=== PATIENT | male | born 1945 | race Two or more races ===

== ENCOUNTER 2022-07-02 08:30 | Inpatient (IN) | payer OTHER ==
[~2022-07-02] VITALS: Ht 167.6 cm; Wt 70.8 kg
[~2022-07-02 08:30] MED LIST: ATORVASTATIN CA40 MG PO; DILTIAZEM 24HR120 MG PO; FENOFIBRATE54 MG PO; IRBESARTAN-HCT1 EAC1; LANTUS100 U/ML; TENORMIN100 M1 PO
[2022-07-02] MEDS ORDERED: AMLODIPINE BESY10 MG PO (08:40)
[2022-07-09] MEDS ORDERED: OXYBUTYNIN CHLO10 MG (15:38)
[2022-07-09] MEDS ORDERED: TOLTERODINE TART2 M1 (15:38)
[2022-07-09] MEDS ORDERED: ALPRAZOLAM1 MG (15:38)
[2022-07-09] MEDS ORDERED: PHOSLO667 M1 (15:38)
[2022-07-09] MEDS ORDERED: TADALAFIL20 MG (15:38)
[2022-07-09] MEDS ORDERED: TRADJENTA5 MG (15:38)
[2022-07-09] MEDS ORDERED: VASOTEC20 MG (15:39)
[2022-07-13] MEDS ORDERED: NORFLEX100MG PO (12:16)
[2022-07-13] MEDS ORDERED: AMLODIPINE BESY10 MG PO (12:17)
[2022-07-13] MEDS ORDERED: LIPITOR40 MG PO (12:17)
[2022-07-13] MEDS ORDERED: HYDRALAZINE HCL25 MG PO (12:18)
[2022-07-13] MEDS ORDERED: LOPRESSOR25 MG PO (12:18)
[2022-07-13] MEDS ORDERED: ALPRAZOLAM1 MG PO (12:19)
== END 2022-07-13 12:29 | disposition home or self-care (01) | DRG 292 ==
LOC: ER 08:30 → ICU 18:59 → ICU-2 18:59 → ICU 20:42 → MEDI 07-07 17:46 → MEDJ 07-07 18:55
PROVIDERS: ADMIT Internal Medicine; ATTEND Internal Medicine
PROC: BG44ZZZ Ultrasonography of Thyroid Gland (ICD-10-PCS; principal; 2022-07-02)
PROC: BB24ZZZ Computerized Tomography (CT Scan) of Bilateral Lungs (ICD-10-PCS; 2022-07-02)
PROC: B246ZZZ Ultrasonography of Right and Left Heart (ICD-10-PCS; 2022-07-02)
PROC: 3E0F7GC Introduction of Other Therapeutic Substance into Respiratory Tract, Via Natural or Artificial Opening (ICD-10-PCS; 2022-07-02)
PROC: 5A0935A Assistance with Respiratory Ventilation, Less than 24 Consecutive Hours, High Flow/Velocity Cannula (ICD-10-PCS; 2022-07-02)
PROC: 05HM33Z Insertion of Infusion Device into Right Internal Jugular Vein, Percutaneous Approach (ICD-10-PCS; 2022-07-06)
PROC: 4A12X4Z Monitoring of Cardiac Electrical Activity, External Approach (ICD-10-PCS; 2022-07-07)
PROC: 5A1D70Z Performance of Urinary Filtration, Intermittent, Less than 6 Hours Per Day (ICD-10-PCS; 2022-07-07)
PROC: B54PZZZ Ultrasonography of Bilateral Upper Extremity Veins (ICD-10-PCS; 2022-07-10)
PROC: 5A1D70Z Performance of Urinary Filtration, Intermittent, Less than 6 Hours Per Day (ICD-10-PCS; 2022-07-10)
PROC: 5A1D70Z Performance of Urinary Filtration, Intermittent, Less than 6 Hours Per Day (ICD-10-PCS; 2022-07-12)
DX: I13.0 Hypertensive heart and chronic kidney disease with heart failure and stage 1 through stage 4 chronic kidney disease, or unspecified chronic kidney disease (principal); J90 Pleural effusion, not elsewhere classified; N18.4 Chronic kidney disease, stage 4 (severe); E11.22 Type 2 diabetes mellitus with diabetic chronic kidney disease; I11.0 Hypertensive heart disease with heart failure; I50.9 Heart failure, unspecified; Z79.4 Long term (current) use of insulin; R09.02 Hypoxemia; R22.1 Localized swelling, mass and lump, neck; E66.8 Other obesity; Z68.37 Body mass index [BMI] 37.0-37.9, adult

== ENCOUNTER 2022-11-07 21:39 | Emergency (ER) | payer OTHER ==
[~2022-11-07] VITALS: Ht 170.2 cm; Wt 130.6 kg
[~2022-11-07 21:39] MED LIST changes: +ALPRAZOLAM1 MG; +ALPRAZOLAM1 MG PO; +AMLODIPINE BESY10 MG PO; +HYDRALAZINE HCL25 MG PO; +LIPITOR40 MG PO; +LOPRESSOR25 MG PO; +NORFLEX100MG PO; +OXYBUTYNIN CHLO10 MG; +PHOSLO667 M1; +TADALAFIL20 MG; +TOLTERODINE TART2 M1; +TRADJENTA5 MG; +VASOTEC20 MG
[2022-11-08] MEDS ORDERED: CEPHALEXIN500 MG PO (02:36)
== END 2022-11-08 03:02 ==
LOC: ER 21:39
PROVIDERS: General Practice
DX: R53.1 Weakness (principal); R50.9 Fever, unspecified; Z79.4 Long term (current) use of insulin; E78.00 Pure hypercholesterolemia, unspecified; E03.9 Hypothyroidism, unspecified; I12.0 Hypertensive chronic kidney disease with stage 5 chronic kidney disease or end stage renal disease; N18.6 End stage renal disease; Z99.2 Dependence on renal dialysis; E11.22 Type 2 diabetes mellitus with diabetic chronic kidney disease; N39.0 Urinary tract infection, site not specified; Z20.822 Contact with and (suspected) exposure to COVID-19
CPT/HCPCS: 71045; 82803; 93005; 96365; 99284; J0696